=== PATIENT | male | born 1935 | race Caucasian/White ===

== ENCOUNTER → 2021-02-19 08:20 | Outpatient (REF) | payer MEDICARE, SELFPAY ==
[2021-02-19 08:57] LABS: Color, Urine Yellow (Yellow); Glucose, Dipstick Normal (Normal); Ketone-Dipstick Negative (Negative); Leukocyte Esterase-Dipstick 500 /ul (Negative); Nitrite-Dipstick Positive (Negative); Occult Blood-Urine 150 /ul (Negative); Protein-Dipstick 100 mg/dl (Negative); Specific Gravity, Urine 1.015 (1.002-1.030); Urine Bilirubin Dipstick Negative (Negative); Urine Clarity Sl. Cloudy (Clear); Urine Urobilinogen Normal (Normal)
== END ==
LOC: OLS.ACW300 08:20
PROVIDERS: Visit Provider Family Medicine
DX: N39.0 Urinary tract infection, site not specified (principal); M48.00 Spinal stenosis, site unspecified; T83.028D Displacement of other urinary catheter, subsequent encounter; F05 Delirium due to known physiological condition; G58.7 Mononeuritis multiplex; M62.81 Muscle weakness (generalized)
CPT/HCPCS: 81002; 87077; 87086; 87088; 87186